=== PATIENT | female | born 1990 | race African-American/Black ===

== ENCOUNTER 2017-07-23 21:12 | Emergency (ER) | payer OTHER ==
[2017-07-23 21:18] VITALS: BP 126/63; PULSE 100; TEMP 98.3; BMI 34.7
--- NOTE | 2017-07-23 21:34 | PDOC ---
History of Present Illness - General History Source: Patient Exam Limitations: No Limitations - History of Present Illness Initial Comments: 07/23/17 22:25 The patient is a 27 year old female, with a significant past medical history of Sickle cell anemia, who presents to the emergency department with sickle cell crisis. Patient reports recent URI due to change in weather and since then has been complaining of congestion, productive cough. Today patient, developed diffuse body pain and presents to the ED for further evaluation. She denies chest pain, headache or dizziness. She denies fever, chills, abdominal pain, nausea, vomit, diarrhea or constipation. She denies dysuria, frequency, urgency or hematuria. Patient denies sick contacts or recent travel. PCP: Dr. Courtney <Kati Hummel - Last Filed: 07/23/17 22:25> - General History Source: Patient <Nikhil Mckay - Last Filed: 07/24/17 19:35> - General Chief Complaint: Sickle Cell Crisis Stated Complaint: CHEST PAIN, SICKLE CELL CRISIS Time Seen by Provider: 07/23/17 21:32 Past History <Kati Hummel - Last Filed: 07/23/17 22:25> - Past Medical History Anemia: Yes (sickle cell anemia) Asthma: No Cardiac Disorders: No COPD: No Diabetes: No Disorders: Yes (IRREGULAR MENSES) HTN: No Hypercholesterolemia: No Liver Disease: Yes (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) - Surgical History Cholecystectomy: Yes - Immunization History Td Vaccination: Yes (unknown) TDAP Vaccination: Yes Immunization Up to Date: Yes - Suicide/Smoking/Psychosocial Hx Smoking Status: No Smoking History: Never smoked Years of Tobacco Use: 0 Have you smoked in the past 12 months: No Number of Cigarettes Smoked Daily: 0 Cigars Per Day: 0 Information on smoking cessation initiated: No Hx Alcohol Use: No Drug/Substance Use Hx: No Substance Use Type: Alcohol Hx Substance Use Treatment: No <Nikhil Mckay - Last Filed: 07/24/17 19:35> - Past Medical History Allergies/Adverse Reactions: Allergies Allergy/AdvReac Type Severity Reaction Status Date / Time orange juice [[place] Juice] Allergy Severe Hives Verified 04/11/15 08:47 potassium clavulanate Allergy Intermediate HIVES, SOB Verified 04/11/15 08:47 [From Augmentin] amoxicillin [Amoxicillin] Allergy HIVES, SOB Verified 04/11/15 08:47 amoxicillin trihydrate Allergy HIVES, SOB Verified 04/11/15 08:47 [From Augmentin] clarithromycin [From Biaxin] Allergy HIVES, SOB Verified 04/11/15 08:47 morphine Allergy SOB, HIVES Verified 04/11/15 08:47 Home Medications: Ambulatory Orders Diphenhydramine [Benadryl -] 50 mg PO DAILY 04/11/15 Folic Acid - 1 mg PO DAILY 04/11/15 Hydromorphone [Dilaudid -] 4 mg PO Q6H 04/11/15 Levofloxacin [Levaquin -] 500 mg PO DAILY #4 tablet 07/24/17 Review of Systems - Review of Systems Able to Perform ROS?: Yes Comments:: 07/23/17 22:25 CONSTITUTIONAL: + diffuse body pain. Absent: fever, chills, diaphoresis, generalized weakness, malaise, loss of appetite HEENT: Absent: rhinorrhea, nasal congestion, throat pain, throat swelling, difficulty swallowing, mouth swelling, ear pain, eye pain, visual Changes CARDIOVASCULAR: Absent: chest pain, syncope, palpitations, irregular heart rate, lightheadedness , peripheral edema RESPIRATORY: Absent: cough, shortness of breath, dyspnea with exertion, orthopnea, wheezing, stridor, hemoptysis GASTROINTESTINAL: Absent: abdominal pain, abdominal distension, nausea, vomiting, diarrhea, constipation, melena, hematochezia GENITOURINARY: Absent: dysuria, frequency, urgency, hesitancy, hematuria, flank pain, genital pain MUSCULOSKELETAL: Absent: myalgia, arthralgia, joint swelling SKIN: Absent: rash, itching, pallor HEMATOLOGIC/IMMUNOLOGIC: Absent: easy bleeding, easy bruising, lymphadenopathy, frequent infections ENDOCRINE: Absent: unexplained weight gain, unexplained weight loss, heat intolerance, cold intolerance NEUROLOGIC: Absent: headache, focal weakness or paresthesias, dizziness, unsteady gait, seizure, mental status changes, bladder or bowel incontinence PSYCHIATRIC: Absent: anxiety, depression, suicidal or homicidal ideation, hallucinations. <Kati Hummel - Last Filed: 07/23/17 22:25> *Physical Exam - Vital Signs Last Vital Signs Temp Pulse Resp BP Pulse Ox 98.3 F 100 H 24 126/63 100 07/23/17 21:14 07/23/17 21:14 07/23/17 21:14 07/23/17 21:14 07/23/17 21:14 - Physical Exam Comments: 07/23/17 22:25 GENERAL: Well developed, well nourished. Awake and alert. +Moderate distress. HEENT: Normocephalic, atraumatic. PERRLA, EOMI. No conjunctival pallor. Sclerae are non -icteric. Moist mucous membranes. Oropharynx is clear. NECK: Supple. Full ROM. No JVD. Carotid pulses 2+ and symmetric, without bruits. No thyromegaly. No lymphadenopathy. CARDIOVASCULAR: Regular rate and rhythm. No murmurs, rubs, or gallops. Distal pulses are 2+ and symmetric. PULMONARY: No evidence of respiratory distress. Lungs clear to auscultation bilaterally. No wheezing, rales or rhonchi. ABDOMINAL: Soft. Non-tender. Non-distended. No rebound or guarding. No organomegaly. Normoactive bowel sounds. MUSCULOSKELETAL Normal range of motion at all joints. No bony deformities or tenderness. No CVA tenderness. EXTREMITIES: No cyanosis. No clubbing. No edema. No calf tenderness. SKIN: Warm and dry. Normal capillary refill. No rashes. No jaundice. NEUROLOGICAL: Alert, awake, appropriate. Cranial nerves 2-12 intact. No deficits to light touch and temperature in face, upper extremities and lower extremities. No motor deficits in the in face, upper extremities and lower extremities. Normoreflexic in the upper and lower extremities. Normal speech. Toes are downgoing bilaterally. Gait is normal without ataxia. PSYCHIATRIC: Cooperative. Good eye contact. Appropriate mood and affect. <Kati Hummel - Last Filed: 07/23/17 22:25> - Vital Signs Last Vital Signs Temp Pulse Resp BP Pulse Ox 98.3 F 100 H 24 126/63 100 07/23/17 21:14 07/23/17 21:14 07/23/17 21:14 07/23/17 21:14 07/23/17 21:14 <Nikhil Mckay - Last Filed: 07/24/17 19:35> ED Treatment Course - LABORATORY CBC & Chemistry Diagram: 07/23/17 22:00 07/23/17 22:00 - ADDITIONAL ORDERS Additional order review: 07/23/17 22:00 RBC 2.78 L MCV 97.1 H MCHC 34.2 RDW 20.0 H MPV 7.5 Neutrophils % 68.2 D Lymphocytes % 21.7 D Monocytes % 5.9 Eosinophils % 2.8 Basophils % 1.4 - Medications Given in the ED: ED Medications Discontinued Medications Generic Name Dose Route Start Last Admin Trade Name Richard PRN Reason Stop Dose Admin Diphenhydramine HCl 25 mg 07/23/17 21:55 07/23/17 22:11 Benadryl Injection - IVPB 07/23/17 21:56 25 mg ONCE ONE Administration Hydromorphone HCl 1 mg 07/23/17 21:36 07/23/17 22:10 Dilaudid Injection - IVPUSH 07/23/17 21:37 1 mg ONCE ONE Administration <Kati Hummel - Last Filed: 07/23/17 22:25> - LABORATORY CBC & Chemistry Diagram: 07/23/17 22:00 07/23/17 22:00 <Nikhil Mckay - Last Filed: 07/24/17 19:35> Medical Decision Making - Medical Decision Making 07/24/17 00:34 Dr. Mckay: The scribe's documentation has been prepared under my direction and personally reviewed by me in its entirery. I confirm that the note above accurately reflects all work, treatment, procedures, and medical decision making performed by me. 07/24/17 00:39 Pt signed against medical advise and is aware that she takes on the responsibilty of her condition. Pt is aware of risk. Levaquin 500mg prescribed for URI symptoms and congestion. 07/24/17 19:35 symptoms <Nikhil Mckay - Last Filed: 07/24/17 19:35> *DC/Admit/Observation/Transfer - Attestations Scribe Attestion: 07/23/17 22:25 Documentation prepared by Kati Hummel, acting as medical care administrator for Nikhil Mckay DO. <Kati Hummel - Last Filed: 07/23/17 22:25> <Nikhil Mckay - Last Filed: 07/24/17 19:35> Diagnosis at time of Disposition: Sickle cell crisis Upper respiratory infection Qualifiers: URI type: unspecified URI Qualified Code(s): J06.9 - Acute upper respiratory infection, unspecified - Discharge Dispostion Disposition: AGAINST MEDICAL ADVICE Condition at time of disposition: Stable - Prescriptions Prescriptions: Levofloxacin [Levaquin -] 500 mg PO DAILY #4 tablet - Referrals Referrals: Toan Courtney MD [Primary Care Provider] - - Patient Instructions Additional Instructions: Please continue taking your medication as usual. Take Levaquin one time daily. Return if any problems. Follow up with primary care doctor. Pt sign against medical advise, you take on responsibillity or your condition.
[2017-07-23] MEDS ORDERED: HYDROmorphone HCL CARPU-JECT 1 MG/1 ML DISP.SYRIN IVPUSH ONE ×2 (21:36→23:08)
[2017-07-23] MEDS ORDERED: SODIUM CHLORIDE 1,000 ML IV STA (21:36)
[2017-07-23] MEDS ORDERED: HYDROmorphone HCL CARPU-JECT 1 MG/1 ML DISP.SYRIN ONE ×2 (21:40→23:24)
[2017-07-23 22:15] LABS: BASOPHIL 1.4 % (0-2.0); EOSINOPHIL 2.8 % (0-4.5); MCH 33.2 pg (25.7-33.7); MCHC 34.2 g/dl (32.0-36.0); MEAN CELL VOLUME 97.1 fl (80-96); MEAN PLT VOLUME 7.5 fl (7.5-11.1); NEUTROPHILS 68.2 % (42.8-82.8); WHITE BLOOD COUNT 19.2 K/mm3 (4.0-10.0)
[2017-07-23 22:36] LABS: ALBUMIN 4.4 g/dl (3.4-5.0); ANION GAP 10 (8-16); BILIRUBIN,TOTAL 5.6 mg/dL (0.2-1.0); CALCIUM 8.7 mg/dL (8.5-10.1); CO2 25 mmol/L (21-32); CREATININE 0.6 mg/dL (0.55-1.02); GLUCOSE,RANDOM 91 mg/dL (74-106); SGOT/AST 30 U/L (15-37); SGPT/ALT 22 U/L (12-78); TOT PROT 8.5 g/dl (6.4-8.2)
[2017-07-23 22:39] LABS: ALK PHOS 131 U/L (45-117); CPK 42 IU/L (26-192); TROPONIN I < 0.02 ng/ml (0.00-0.05)
[2017-07-23 22:46] LABS: PLATELET COMMENT2 FEW GIANT PLTS; PLATELET COUNT 517 K/MM3 (134-434); PLATELET ESTIMATE INCREASED (NORMAL)
[2017-07-23 22:47] LABS: ANISOCYTOSIS 1+; HYPOCHROMIA 1+; MICROCYTOSIS 1+; POLYCHROMASIA 1+; TARGET CELLS FEW
[2017-07-23] MEDS ORDERED: LEVOFLOXACIN 500 MG IVPB 100 ML IVPB ONE ×2 (23:30→23:39)
[2017-07-23 23:42] LABS: URINE APPEARANCE CLEAR; URINE BILIRUBIN NEGATIVE (NEGATIVE); URINE BLOOD NEGATIVE (NEGATIVE); URINE COLOR YELLOW; URINE GLUCOSE (UA) NEGATIVE (NEGATIVE); URINE KETONE NEGATIVE (NEGATIVE); URINE NITRITE NEGATIVE (NEGATIVE); URINE PROTEIN NEGATIVE (NEGATIVE); URINE UROBILINOGEN 4.0 E.U/dl mg/dL (0.2-1.0)
[2017-07-24 00:19] LABS: INR 1.2 (0.82-1.09); PROTHROMBIN TIME (PATIENT) 13.6 SEC (9.98-11.88)
[2017-07-24 09:48] LABS: URINE LEUK ESTERASE Negative (NEGATIVE)
--- NOTE | 2017-07-24 11:48 | EKG ---
Test Reason : Blood Pressure : / mmHG Vent. Rate : 088 BPM Atrial Rate : 088 BPM P-R Int : 140 ms QRS Dur : 092 ms QT Int : 390 ms P-R-T Axes : 077 005 031 degrees QTc Int : 471 ms POOR DATA QUALITY, INTERPRETATION MAY BE ADVERSELY AFFECTED NORMAL SINUS RHYTHM RSR' OR QR PATTERN IN V1 SUGGESTS RIGHT VENTRICULAR CONDUCTION DELAY VOLTAGE CRITERIA FOR LEFT VENTRICULAR HYPERTROPHY ABNORMAL ECG WHEN COMPARED WITH ECG OF 09-JUL-2014 15:57, NO SIGNIFICANT CHANGE WAS FOUND Confirmed by VAHE WALTERS, JULIANNA ([id number]) on 07/24/2017 11:48:23 AM Referred By: Confirmed By:JULIANNA COTTER MD
== END 2017-07-24 01:00 | disposition left against medical advice (07) ==
LOC: JER 21:12
PROC: 3E03329 Introduction of Other Anti-infective into Peripheral Vein, Percutaneous Approach (ICD-10-PCS; principal; 2017-07-23)
PROC: 3E033NZ Introduction of Analgesics, Hypnotics, Sedatives into Peripheral Vein, Percutaneous Approach (ICD-10-PCS; 2017-07-23)
PROC: 3E033GC Introduction of Other Therapeutic Substance into Peripheral Vein, Percutaneous Approach (ICD-10-PCS; 2017-07-23)
PROC: 3E033NZ Introduction of Analgesics, Hypnotics, Sedatives into Peripheral Vein, Percutaneous Approach (ICD-10-PCS; 2017-07-23)
DX: D57.00 Hb-SS disease with crisis, unspecified (principal); J06.9 Acute upper respiratory infection, unspecified
CPT/HCPCS: 36415; 71020-TC; 80053; 81003; 82550; 84484; 84703; 85025; 85044; 85610; 87040; 87086; 93005; 93010; 96365; 96375; 99283-25

== ENCOUNTER 2018-02-16 00:39 | Inpatient (IN) | payer MEDICARE, OTHER ==
[2018-02-16 00:58] VITALS: BP 132/59; PULSE 107; TEMP 97.2; BMI 34.3
--- NOTE | 2018-02-16 01:08 | PDOC ---
Heart Score/ECG Review - ECG Intrepretation Comment:: 02/16/18 03:48 Completed @3:42:11 normal sinus rhythm with sinus arrhythmia Left axis deviation nonspecific ST and T wave abnormality Abnormal ECG Vent. rate 81 bpm GA interval 148 ms QRS duration 86 ms
[2018-02-16 02:12] LABS: HEMATOCRIT 20.6 % (32.4-45.2); HEMOGLOBIN 7.6 GM/dL (10.7-15.3); MCH 35.3 pg (25.7-33.7); MCHC 36.9 g/dl (32.0-36.0); MEAN CELL VOLUME 95.6 fl (80-96); MEAN PLT VOLUME 6.8 fl (7.5-11.1); PLATELET COUNT 423 K/MM3 (134-434); RBC 2.15 M/mm3 (3.60-5.2); RDW 23.2 % (11.6-15.6); RETICULOCYTES 15.11 % (0.5-1.5); WHITE BLOOD COUNT 23.9 K/mm3 (4.0-10.0)
--- NOTE | 2018-02-16 03:10 | PDOC ---
History of Present Illness - General Chief Complaint: Chest Pain Stated Complaint: CHEST PAIN Time Seen by Provider: 02/16/18 00:47 History Source: Patient Exam Limitations: No Limitations - History of Present Illness Initial Comments: 02/16/18 03:43 Best Contact: Pmhx: Sickle cell disease, iron overload Pshx: At 18 years old/laparoscopic cholecystectomy; tonsillectomy; Port-A-Cath Allergies: Penicillin/hives, morphine/hives and short of breath 27-year-old female presents to the ER complaining of midsternal nonradiating intermittent 8/10 dull chest pain which is alleviated minimally when laying on the right lateral recumbent position and exacerbated on touch. Patient denies nausea, vomiting, fever/chills, headache, dizziness, lightheadedness, facial pains, rhinorrhea, nasal congestion, neck pain/stiffness, back pain, shortness of breath, flank pains, abdominal pains, urinary symptoms, extremity numbness or tingling sensation. Past History - Past Medical History Allergies/Adverse Reactions: Allergies Allergy/AdvReac Type Severity Reaction Status Date / Time orange juice [[place] Juice] Allergy Severe Hives Verified 02/16/18 00:57 potassium clavulanate Allergy Intermediate HIVES, SOB Verified 02/16/18 00:57 [From Augmentin] amoxicillin [Amoxicillin] Allergy HIVES, SOB Verified 02/16/18 00:57 amoxicillin trihydrate Allergy HIVES, SOB Verified 02/16/18 00:57 [From Augmentin] clarithromycin [From Biaxin] Allergy HIVES, SOB Verified 02/16/18 00:57 morphine Allergy SOB, HIVES Verified 02/16/18 00:57 Home Medications: Ambulatory Orders Diphenhydramine [Benadryl -] 50 mg PO DAILY 04/11/15 Folic Acid - 1 mg PO DAILY 04/11/15 HYDROmorphone [Dilaudid -] 4 mg PO Q6H 04/11/15 levoFLOXacin [Levaquin -] 500 mg PO DAILY #4 tablet 07/24/17 Anemia: Yes (sickle cell anemia) Asthma: No Cardiac Disorders: No COPD: No Diabetes: No Disorders: Yes (IRREGULAR MENSES) HTN: No Hypercholesterolemia: No Liver Disease: Yes (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) - Surgical History Cholecystectomy: Yes - Immunization History Td Vaccination: Yes (unknown) TDAP Vaccination: Yes Immunization Up to Date: Yes - Suicide/Smoking/Psychosocial Hx Smoking Status: No Smoking History: Never smoked Years of Tobacco Use: 0 Have you smoked in the past 12 months: No Number of Cigarettes Smoked Daily: 0 Cigars Per Day: 0 Information on smoking cessation initiated: No Hx Alcohol Use: No Drug/Substance Use Hx: No Substance Use Type: Alcohol Hx Substance Use Treatment: No Cardiac Specific PMH - Complaint Specific PMHX Angina: No Cardiac Arrhythmia: No Review of Systems - Review of Systems Able to Perform ROS?: Yes Comments:: 02/16/18 03:46 CONSTITUTIONAL: Absent: fever, chills, diaphoresis, generalized weakness, malaise, loss of appetite HEENT: Absent: rhinorrhea, nasal congestion, throat pain, throat swelling, difficulty swallowing, mouth swelling, ear pain, eye pain, visual Changes CARDIOVASCULAR: +mid sternal cp Absent: loss of consciousness, palpitations, irregular heart rate, peripheral edema RESPIRATORY: Absent: cough, shortness of breath, dyspnea with exertion, orthopnea, wheezing, stridor, hemoptysis GASTROINTESTINAL: Absent: abdominal pain, abdominal distension, nausea, vomiting, diarrhea, constipation, melena, hematochezia GENITOURINARY: Absent: dysuria, frequency, urgency, hesitancy, hematuria, flank pain, genital pain MUSCULOSKELETAL: Absent: myalgia, arthralgia, joint swelling SKIN: Absent: rash, itching, pallor HEMATOLOGIC/IMMUNOLOGIC: Absent: easy bleeding, easy bruising, lymphadenopathy, frequent infections ENDOCRINE: Absent: unexplained weight gain, unexplained weight loss, heat intolerance, cold intolerance NEUROLOGIC: Absent: headache, focal weakness or paresthesias, dizziness, unsteady gait, seizure, mental status changes, bladder or bowel incontinence PSYCHIATRIC: Absent: anxiety, depression, suicidal or homicidal ideation, hallucinations. Is the patient limited Lao proficient: No *Physical Exam - Vital Signs Last Vital Signs Temp Pulse Resp BP Pulse Ox 97.2 F L 107 H 18 132/59 93 L 02/16/18 00:57 02/16/18 00:57 02/16/18 00:57 02/16/18 00:57 02/16/18 00:57 - Physical Exam Comments: 02/16/18 03:46 GENERAL: Well developed, well nourished. Awake and alert. No acute distress. HEENT: Normocephalic, atraumatic. PERRLA, EOMI. No conjunctival pallor. Sclera are non- icteric. Moist mucous membranes. Oropharynx is clear. NECK: Supple. Full ROM. No JVD. Carotid pulses 2+ and symmetric, without bruits. No thyromegaly. No lymphadenopathy. CARDIOVASCULAR: Regular rate and rhythm. No murmurs, rubs, or gallops. Distal pulses are 2+ and symmetric. PULMONARY: No evidence of respiratory distress. Lungs clear to auscultation bilaterally. No wheezing, rales or rhonchi. ABDOMINAL: Soft. Non-tender. Non-distended. No rebound or guarding. No organomegaly. Normoactive bowel sounds. MUSCULOSKELETAL Normal range of motion at all joints. No bony deformities or tenderness. No CVA tenderness. EXTREMITIES: No cyanosis. No clubbing. No edema. No calf tenderness. SKIN: Warm and dry. Normal capillary refill. No rashes. No jaundice. NEUROLOGICAL: Alert, awake, appropriate. Cranial nerves 2-12 intact. No deficits to light touch and temperature in face, upper extremities and lower extremities. No motor deficits in the in face, upper extremities and lower extremities. Normoreflexic in the upper and lower extremities. Normal speech. Toes are down- going bilaterally. Gait is normal without ataxia. PSYCHIATRIC: Cooperative. Good eye contact. Appropriate mood and affect. ED Treatment Course - LABORATORY CBC & Chemistry Diagram: 02/16/18 01:39 02/16/18 01:39 - ADDITIONAL ORDERS Additional order review: Laboratory Results 02/16/18 02/16/18 02/16/18 01:39 01:39 01:39 PT with INR 15.20 H INR 1.35 H Sodium 140 Potassium 3.8 Chloride 107 Carbon Dioxide 26 Anion Gap 7 L BUN 7 Creatinine 0.6 Creat Clearance w eGFR > 60 Random Glucose 100 Calcium 8.0 L Total Bilirubin 5.5 H AST 36 ALT 18 Alkaline Phosphatase 92 LD Total 393 H Creatine Kinase 42 Troponin I < 0.02 Total Protein 7.8 Albumin 4.0 02/16/18 01:39 RBC 2.15 L D MCV 95.6 MCHC 36.9 H RDW 23.2 H D MPV 6.8 L Neutrophils % No Result Required. Lymphocytes % No Result Required. - RADIOLOGY Radiograph Interpretation: 02/16/18 03:46 CXR 2v NAD *DC/Admit/Observation/Transfer Diagnosis at time of Disposition: Sickle cell crisis - Discharge Dispostion Condition at time of disposition: Guarded Decision to Admit order: Yes - Referrals - Patient Instructions - Post Discharge Activity
[2018-02-16 03:17] LABS: ANION GAP 7 (8-16); BILIRUBIN,TOTAL 5.5 mg/dL (0.2-1.0); BLOOD UREA NITROGEN 7 mg/dL (7-18); CHLORIDE 107 mmol/L (98-107); CO2 26 mmol/L (21-32); CREATININE 0.6 mg/dL (0.55-1.02); GLUCOSE,RANDOM 100 mg/dL (74-106); POTASSIUM 3.8 mmol/L (3.5-5.1); SGOT/AST 36 U/L (15-37); SGPT/ALT 18 U/L (12-78); SODIUM 140 mmol/L (136-145); TOT PROT 7.8 g/dl (6.4-8.2)
[2018-02-16 03:20] LABS: ALK PHOS 92 U/L (45-117)
[2018-02-16 03:26] LABS: INR 1.35 (0.82-1.09); PROTHROMBIN TIME (PATIENT) 15.2 SEC (9.7-13.0)
[2018-02-16] MEDS ORDERED: SODIUM CHLORIDE 1,000 ML IV STA (03:37)
[2018-02-16] MEDS ORDERED: diphenhydrAMINE HCL 25 MG CAPSULE (FP) PO ONE ×2 (03:53→04:06)
--- NOTE | 2018-02-16 03:53 | HP ---
Admitting History and Physical - Primary Care Physician PCP: niya - Admission History Source: Patient, Medical Record Limitations to Obtaining History: No Limitations - Past Medical History ...LMP: 05/07/14 Heme/Onc: Yes: Anemia, Sickle Cell Disease, Other (hemosiderosis) Musculoskeletal: Yes: Other (left hip avascular necrosis) - Past Surgical History Past Surgical History: Yes: Cholecystectomy - Smoking History Smoking history: Never smoked Have you smoked in the past 12 months: No Aproximately how many cigarettes per day: 0 - Alcohol/Substance Use Hx Alcohol Use: No - Social History ADL: Independent Home Medications - Allergies Allergies/Adverse Reactions: Allergies Allergy/AdvReac Type Severity Reaction Status Date / Time orange juice [[place] Juice] Allergy Severe Hives Verified 02/16/18 00:57 potassium clavulanate Allergy Intermediate HIVES, SOB Verified 02/16/18 00:57 [From Augmentin] amoxicillin [Amoxicillin] Allergy HIVES, SOB Verified 02/16/18 00:57 amoxicillin trihydrate Allergy HIVES, SOB Verified 02/16/18 00:57 [From Augmentin] clarithromycin [From Biaxin] Allergy HIVES, SOB Verified 02/16/18 00:57 morphine Allergy SOB, HIVES Verified 02/16/18 00:57 - Home Medications Home Medications: Ambulatory Orders Diphenhydramine [Benadryl -] 50 mg PO DAILY 04/11/15 Folic Acid - 1 mg PO DAILY 04/11/15 HYDROmorphone [Dilaudid -] 4 mg PO Q6H 04/11/15 levoFLOXacin [Levaquin -] 500 mg PO DAILY #4 tablet 07/24/17 Family Disease History - Family Disease History Family Disease History: Other: Father (sickle trait), Mother (sickle trait) Review of Systems - Review of Systems Constitutional: reports: Malaise Eyes: reports: No Symptoms HENT: reports: No Symptoms Neck: reports: No Symptoms Cardiovascular: reports: Chest Pain, Shortness of Breath Respiratory: reports: SOB Gastrointestinal: reports: No Symptoms Genitourinary: reports: No Symptoms Integumentary: reports: No Symptoms Neurological: reports: No Symptoms Endocrine: reports: No Symptoms Physical Examination Vital Signs: Vital Signs Temperature 97.2 F L 02/16/18 00:57 Pulse Rate 107 H 02/16/18 00:57 Respiratory Rate 18 02/16/18 00:57 Blood Pressure 132/59 02/16/18 00:57 O2 Sat by Pulse Oximetry (%) 93 L 02/16/18 00:57 Constitutional: Yes: Well Nourished, Calm, Moderate Distress Eyes: Yes: WNL, EOM Intact, Sclera Icterus HENT: Yes: WNL, Atraumatic, Normocephalic Neck: Yes: WNL, Supple, Trachea Midline Cardiovascular: Yes: WNL, Regular Rate and Rhythm Respiratory: Yes: WNL, Regular, CTA Bilaterally Gastrointestinal: Yes: WNL, Normal Bowel Sounds, Soft ...Rectal Exam: Yes: WNL Labs: CBC, BMP 02/16/18 01:39 02/16/18 01:39 Imaging - Results Chest X-ray: Report Reviewed, Image Reviewed Cat Scan: Report Reviewed, Image Reviewed Problem List - Problems (1) Sickle cell crisis Assessment/Plan: this is a 27 y/o female patient with hx of sickle cell disease presented to the hospital for sickle cell crisis patient was noted to have elevate reticulocyte count, LDH and Bilirubin level. Plan: admit patient to Med surg start IVF 250cc/hr pain medication with hydromorphone 4mg q6 hrs benadryl prn for itching repeat LDH repeat reticulocyte count Code(s): D57.00 - HB-SS DISEASE WITH CRISIS, UNSPECIFIED
[2018-02-16] MEDS ORDERED: SODIUM CHLORIDE 1,000 ML IV SCH (04:00)
[2018-02-16] MEDS ORDERED: HEPARIN NA (PORCINE) 5,000 UNITS/ML 1ML VIAL SQ SCH (06:00)
[2018-02-16 06:10] LABS: ANISOCYTOSIS 2+; PLATELET ESTIMATE NORMAL; SICKELED CELLS 2+
[2018-02-16] MEDS ORDERED: HYDROmorphone HCL 2 MG TABLET ONE (06:20)
--- NOTE | 2018-02-16 08:20 | EKG ---
Test Reason : Blood Pressure : / mmHG Vent. Rate : 096 BPM Atrial Rate : 096 BPM P-R Int : 128 ms QRS Dur : 094 ms QT Int : 366 ms P-R-T Axes : 074 015 048 degrees QTc Int : 462 ms NORMAL SINUS RHYTHM RSR' OR QR PATTERN IN V1 SUGGESTS RIGHT VENTRICULAR CONDUCTION DELAY MINIMAL VOLTAGE CRITERIA FOR LVH, MAY BE NORMAL VARIANT BORDERLINE ECG WHEN COMPARED WITH ECG OF 23-JUL-2017 22:45, NO SIGNIFICANT CHANGE WAS FOUND Confirmed by VAHE WALTERS, JULIANNA ([id number]) on 02/16/2018 8:19:47 AM Referred By: Confirmed By:JULIANNA COTTER MD
== END 2018-02-16 06:56 | disposition left against medical advice (07) | DRG 812 ==
LOC: JER 00:39 → JERBED 03:10
PROVIDERS: ADMIT Internal Medicine; ATTEND Family Medicine
DX: D57.00 Hb-SS disease with crisis, unspecified (principal); M90.552 Osteonecrosis in diseases classified elsewhere, left thigh; E83.19 Other disorders of iron metabolism; D64.9 Anemia, unspecified
CPT/HCPCS: 36415; 71045-TC-FY; 80053; 82550; 83615; 84484; 85025; 85044; 85610; 93005; 93010; 99283-25; J1644; J7030

== ENCOUNTER 2019-01-01 00:54 | Emergency (ER) | payer OTHER ==
[2019-01-01 02:03] VITALS: BP 112/52; PULSE 88; TEMP 98.2; BMI 29.3
--- NOTE | 2019-01-01 02:19 | PDOC ---
Attending Attestation - Resident Resident Name: Miguel A Moreland - ED Attending Attestation I have performed the following: I have examined & evaluated the patient, The case was reviewed & discussed with the resident, I agree w/resident's findings & plan - HPI HPI: 01/01/19 03:37 28-year-old female with history of sickle cell disease complaining of joint pain. There is no history of chest pain fever or vomiting. - Physicial Exam PE: 01/01/19 03:37 Agree with resident's exam - Medical Decision Making 01/01/19 03:37 28-year-old female with joint pain and history of sickle cell disease Patient refused further care and this department stating she did not want to be stuck again and left the department AGAINST MEDICAL ADVICE She exhibited no abnormal behavior, alert and oriented 4
--- NOTE | 2019-01-01 06:41 | PDOC ---
History of Present Illness - General Chief Complaint: Pain Stated Complaint: PAIN,SICKLE CELL Time Seen by Provider: 01/01/19 02:12 History Source: Patient, Old Records Exam Limitations: No Limitations - History of Present Illness Initial Comments: 28 y/o female presenting to [facility] ER complaining of left ankle and bilateral knee pain suspected to be secondary to a sickle cell crisis. Started at the beginning of the week and has progressively worsened. 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 Last crisis was one month ago. Follows with Dr. Galdamez for hematology care. Is prescribed Dilaudid and Motrin for pain. Last took both at approx. 12am, just prior to arrival, with limited reduction in pain. Denies recent illness. Past History - Past Medical History Allergies/Adverse Reactions: Allergies Allergy/AdvReac Type Severity Reaction Status Date / Time orange juice [[place]son Juice] Allergy Severe Hives Verified 01/01/19 02:02 potassium clavulanate Allergy Intermediate HIVES, SOB Verified 01/01/19 02:02 [From Augmentin] amoxicillin [Amoxicillin] Allergy HIVES, SOB Verified 01/01/19 02:02 amoxicillin trihydrate Allergy HIVES, SOB Verified 01/01/19 02:02 [From Augmentin] clarithromycin [From Biaxin] Allergy HIVES, SOB Verified 01/01/19 02:02 morphine Allergy SOB, HIVES Verified 01/01/19 02:02 Home Medications: Ambulatory Orders Diphenhydramine [Benadryl -] 50 mg PO DAILY 04/11/15 Folic Acid - 1 mg PO DAILY 04/11/15 HYDROmorphone [Dilaudid -] 4 mg PO Q6H 04/11/15 levoFLOXacin [Levaquin -] 500 mg PO DAILY #4 tablet 07/24/17 Anemia: Yes (sickle cell anemia) Asthma: No Cardiac Disorders: No COPD: No Diabetes: No Disorders: Yes (IRREGULAR MENSES) HTN: No Hypercholesterolemia: No Liver Disease: Yes (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) - Surgical History Cholecystectomy: Yes - Immunization History Td Vaccination: Yes (unknown) TDAP Vaccination: Yes Immunization Up to Date: Yes - Suicide/Smoking/Psychosocial Hx Smoking Status: No Smoking History: Never smoked Years of Tobacco Use: 0 Have you smoked in the past 12 months: No Number of Cigarettes Smoked Daily: 0 Cigars Per Day: 0 Information on smoking cessation initiated: No Hx Alcohol Use: No Drug/Substance Use Hx: No Substance Use Type: None Hx Substance Use Treatment: No Review of Systems - Review of Systems Able to Perform ROS?: Yes Comments:: In addition to that documented in the HPI above, the additional ROS was obtained : Constitutional: Denies fevers or chills ENMT: Denies sore throat CV: Denies chest pain Resp: Denies SOB GI: Denies vomiting or diarrhea : Denies dysuria, hematuria, or urinary frequency MSK: Per HPI *Physical Exam - Vital Signs Last Vital Signs Temp Pulse Resp BP Pulse Ox 98.2 F 88 18 112/52 L 96 01/01/19 02:02 01/01/19 02:02 01/01/19 02:02 01/01/19 02:02 01/01/19 02:02 - Physical Exam Comments: Constitutional: Well-developed, well-nourished female in no acute distress or obvious discomfort. Found semi-fowlers on hospital bed. Alert and oriented x4. Answered all questions appropriately and completely. Speech was non-labored, non -pressured. Head: Normocephalic. No obvious external signs of trauma. Cardiovascular / Chest: Peripheral pulses: radial pulses full. Respiratory: Breathing unlabored. Stable on room air. Neuro: Alert and oriented. Moving all four extremities spontaneously. Gait normal. Skin: Warm, dry, and intact. Psych: Affect: appropriate, occasionally tearful. Mood: normal. ED Treatment Course - ADDITIONAL ORDERS Additional order review: My Active Orders 01/01/19 03:00 CBC WITH DIFFERENTIAL Stat 01/01/19 03:01 COMP METABOLIC PANEL Stat LDH Stat RETIC COUNT [RETICULOCYTES] Stat Medical Decision Making - Medical Decision Making 28 y/o female presenting to suspected sickle cell pain crisis. Denies chest pain or SOB. Attempted ultrasound guided IV placement once without success. Pt declined a second attempted. Explained to the pt that without obtaining blood work, I would be unable to prescribe pain medication. Pt then stated she would follow up with [her] doctor in the morning. Pt signed out AMA. Unable to complete full physical exam prior to departure. *DC/Admit/Observation/Transfer Diagnosis at time of Disposition: Pain - Discharge Dispostion Disposition: AGAINST MEDICAL ADVICE - Referrals - Patient Instructions - Post Discharge Activity
== END 2019-01-01 03:42 | disposition left against medical advice (07) ==
LOC: JER 00:54
DX: D57.00 Hb-SS disease with crisis, unspecified (principal)
CPT/HCPCS: 99281-25